=== PATIENT | female | born 2000 | race Caucasian/White ===

== ENCOUNTER 2024-04-03 09:47 | Outpatient (AMB) | payer BC, SELFPAY ==
--- NOTE | 2024-04-03 09:57 | A.OFFPC_ITS ---
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 Intake Note: New patient visit Grades 9 Thru 12 Visiting Teacher Required: No Allergies No Known Allergies Allergy (Verified 04/03/24 09:58) Medication List - Last Reconciled 04/03/24 by Caorlina Dhaliwal PA-C No Known Home Meds Tobacco use date assessed: 04/03/24 Dental Screening Dental Screen Date: 04/03/24 Did you have a dental visit in the last 12 months?: Yes Did you have a dental problem in the last 6 months where you did not have access to dental care?: No Was dental information given to patient?: Patient has dentist HPI 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 She was last seen in August by myself. She states that within the last 6-7 months she has started developing diarrhea with constipation. She states that she has not had a formed stool in about 6 months or so. She says that she used to have a normal bowel movement everyday and now it is every other day and diarrhea. No blood stool. No changes in diet. No n/v. No fever or chills. No pain in the stomach. She does feel like she has been tired and attributes this to starting around the same time as her symptoms despite however much she sleeps but she is working overnight so states it could also be lifestyle. No new meds or supplements. No travel prior to this starting. No weight loss. No fam hx of colon ca or ibd. Psych: Her ADD was controlled with Adderall 40 mg extended release daily. She has followed with Psychiatry and states that they have run into issues of finding Adderall extended release. She states that she is working overnight for the next 2 weeks and for the last week has been off of medication and would like to go on something. She has been unable to reach her psychiatrist. Formula Weigher: Up-to-date with routine visits. Last year I did start her on suppression dose Valtrex for recurrent HSV 2 infections. She states it was helpful and a few months ago she has only started taking this as needed for flare-ups and she has only had 2 flare-ups. [facility] Medical History (Updated 04/03/24 @ 12:48 by Carolina Dhaliwal PA-C) Shoulder subluxation HSV-2 infection ADD (attention deficit disorder) Acne Family History (Updated 04/02/24 @ 14:55 by Malena Lyon CMA) Mother HTN (hypertension) Obese Father Acute myocardial infarction Diabetes Hypercholesteremia Hyperlipidemia Maternal Grandmother ADD (attention deficit disorder) Paternal Grandfather Diabetes Hyperlipidemia Stroke (cerebrum) Sister Scoliosis Maternal Grandmother Cancer of breast Social History Housing: Apartment Patient Tobacco Use Status: Never used Tobacco e-Cigarette/Vaping Use: Former Use Second Hand Smoke Exposure: No service: No Current occupational status: employed 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 1. Little interest or pleasure in doing things: several days 2. Feeling down, depressed, or hopeless: not at all 3. Trouble falling or staying asleep, or sleeping too much: nearly every day 4. Feeling tired or having little energy: nearly every day 5. Poor appetite or overeating: not at all 6. Feeling bad about yourself - or that you are a failure or have let yourself or your family down: not at all 7. Trouble concentrating on things, such as reading the newspaper or watching television: nearly every day 8. Moving or speaking so slowly that other people could have noticed. Or the opposite - being so fidgety or restless that you have been moving around a lot more than usual: not at all 9. Thoughts that you would be better off or of hurting yourself in some way: not at all Total score: 10 Depression Screening Interpretation: Positive Depression Screening Follow-up: Existing condition, In treatment, New Medication prescribed and Change in Medi cation Depression Screening Done: Yes 28388 - PHQ-9 Billing: Yes Source: Developed by Drs. Alvarez Garber, Lisseth Ramos, Lexa Malloy and colleagues, with an educational brad from [employer]. Thrive Questionnaire Date Thrive assessed: 04/03/24 I am a: Patient What is your living situation today?: I have a steady place to live Within the past 12 months, did the food you bought not last and you didn't have the money to get more?: Never true Within the past 12 months, did you worry whether your food would run out before you got money to buy more?: Never true Do you have trouble paying for medicines?: No Do you have trouble getting transportation to medical appointments?: No Do you have trouble paying your heating and electricity bill?: No Do you have trouble taking care of your child, family member or friend?: No Do you have trouble with day-to-day activities such as bathing, preparing meals, shopping, managing finances, etc.?: No Are you currently unemployed and looking for a job?: No Are you interested in more education?: No Please select the resources that you would like help with: None Currently or been in a relationship where the following occur: No concerns reported THRIVE Score: 0 AUDIT C Alcohol Use Questionnaire (AUDIT-C) 1. How often do you have a drink containing alcohol?: 2-4 times a month 2. How many drinks containing alcohol do you have on a typical day when you are drinking?: 1 or 2 3. How often do you have six or more drinks on one occasion?: Less than monthly Total Score: 3 Score Reviewed/Action Taken: Yes DESHAWN-7 AMB Questionnaire DESHAWN-7 Date DESHAWN - 7 assessed: 04/03/24 Feeling nervous, anxious, or on edge: 1 = Several days Not being able to stop or control worryin = Several days Worrying too much about different things: 1 = Several days Trouble relaxin = Nearly every day Being so restless that it is hard to sit still: 3 = Nearly every day Becoming easily annoyed or irritable: 0 = Not at all Feeling afraid as if something awful might happen: 0 = Not at all Total DESHAWN-7 score (0-4 normal; 5-9 mild; 10-14 moderate; 15-21 severe): 9 Source: Developed by Drs. Alvarez Garber, Lisseth Ramos, Lexa Malloy and colleagues, with an educational brad from [employer]. DESHAWN-7 Assessment Billing DESHAWN-7 Assessment Tool: DESHAWN-7 Assessment 50607 Physical exam (Primary Care) Vital Signs: Last Vital Signs Temp 98.2 F 04/03/24 10:02 Pulse 75 04/03/24 10:02 Resp 12 04/03/24 10:02 BP 94/58 L 04/03/24 10:02 Pulse Ox 95 04/03/24 10:02 Oxygen Delivery Method Room Air 04/03/24 10:02 BMI result Body Mass Index 19.5 Tobacco/Smoking Status: Tobacco use Status Tobacco use date assessed 04/03/24 04/03/24 10:06 Patient Tobacco Use Status Never used Tobacco 04/03/24 10:06 e-Cigarette/Vaping Use Former Use 04/03/24 10:06 PHQ-9: PHQ-9 Score PHQ-9: Total score 10 04/03/24 10:14 Depression Screening Interpretation: Positive Depression Screening Follow-up: Existing condition, In treatment, New Medication prescribed and Change in Medication Thrive Assessment: Date of Thrive Assessment Date Thrive assessed 04/03/24 04/03/24 10:06 Currently or been in a relationship where the following occur: No concerns reported Const Orientation/consciousness: patient oriented x3 HENMT Ears: hearing grossly normal bilaterally Neck Thyroid: Thyroid normal Lymphatic: no lymphadenopathy noted Resp Auscultation: clear to auscultation bilaterally Cardio Rate: regular rate Rhythm: regular rhythm Heart sounds: S1 normal heart sound present and S2 normal heart sound present GI Inspection: Yes normal to inspection Palpation (GI): Soft to palpation and Other GI palpation findings present (nontender, no cva tenderness) Auscultation: normoactive bowel sounds Rectal Exam - Female: deferred Skin General skin exam: no rashes or lesions noted Neuro General: patient oriented x3, gait normal and no focal motor deficits Coding Level of Care Code Est Pt Level 4 (69469) Complex EM visit Add On G2211 Diagnoses Alternating constipation and diarrhea R19.8 Fatigue, unspecified type R53.83 Fatigue type: unspecified ADD (attention deficit disorder) F98.8 Additional Codes DESHAWN-7 Assessment Billing - DESHAWN-7 Assessment Tool: DESHAWN-7 Assessment 46689 ([id number]) Assessment & Plan Assessment & Plan (1) Alternating constipation and diarrhea: Code(s): R19.8 - Other specified symptoms and signs involving the digestive system and abdomen Category: Medical Plan: Labs and stool studies ordered today. We discussed with the elimination diet. Advised to try a probiotic. Short term follow up. Or sooner if needed (2) Fatigue: Code(s): R53.83 - Other fatigue Category: Medical Qualifiers: Fatigue type: unspecified Qualified Code(s): R53.83 - Other fatigue Plan: As above (3) ADD (attention deficit disorder): Code(s): F98.8 - Other specified behavioral and emotional disorders with onset usually occurring in childhood and adolescence Category: Medical Plan: We will try Adderall 10 mg b.i.d.. Advised that she needs to follow up with Psychiatry after this prescription. Patient understands and agrees with this plan. Orders: Orders Complete Blood Count Auto Diff Today R19.8 - Other specified symptoms and signs involving the digestive system and abdomen TSH reflex Free T4 Today R19.8 - Other specified symptoms and signs involving the digestive system and abdomen Endomysial IgA rflx Titer Today R19.8 - Other specified symptoms and signs involving the digestive system and abdomen Immunoglobulin A Today R19.8 - Other specified symptoms and signs involving the digestive system and abdomen Erythrocyte Sedimentation Rate Today R19.8 - Other specified symptoms and signs involving the digestive system and abdomen Comprehensive Hope. Panel Fast Today R19.8 - Other specified symptoms and signs involving the digestive system and abdomen IRON PROFILE Today R19.8 - Other specified symptoms and signs involving the digestive system and abdomen Ferritin Today R19.8 - Other specified symptoms and signs involving the digestive system and abdomen Vitamin B12 and Folate Today R19.8 - Other specified symptoms and signs involving the digestive system and abdomen Transglutaminase Ab IgG Today R19.8 - Other specified symptoms and signs involving the digestive system and abdomen OBSX3 Today R19.8 - Other specified symptoms and signs involving the digestive system and abdomen Calprotectin, Fecal Today R19.8 - Other specified symptoms and signs involving the digestive system and abdomen C Reactive Protein Today R19.8 - Other specified symptoms and signs involving the digestive system and abdomen Medications: New dextroamphetamine-amphetamine 10 mg (Adderall) administer doses at least 4-6 hours apart; Partial Fill upon patient request. 10 mg PO BID 60 tabs 0RF 30 days valacyclovir (Valtrex) 500 mg PO DAILY 90 tabs 3RF
[2024-04-03 10:02] VITALS: BP 94/58; PULSE 75; RESP 12; TEMP 36.8; O2SAT 95; BMI 19.5
== END 2024-04-03 10:29 | disposition home or self-care (01) ==
PROVIDERS: PCP Physician Assistant; Visit Provider Physician Assistant
DX: R19.8 Other specified symptoms and signs involving the digestive system and abdomen (principal); R53.83 Other fatigue; F98.8 Other specified behavioral and emotional disorders with onset usually occurring in childhood and adolescence

== ENCOUNTER → 2024-04-03 09:47 | Outpatient (BNVA) | payer BC, SELFPAY | PROVIDERS: PCP Physician Assistant; Visit Provider Physician Assistant | DX: R19.8 Other specified symptoms and signs involving the digestive system and abdomen (principal); R53.83 Other fatigue; F98.8 Other specified behavioral and emotional disorders with onset usually occurring in childhood and adolescence | CPT/HCPCS: 96127 ==

== ENCOUNTER 2024-04-03 10:31 | Outpatient (REF) | payer BC, SELFPAY ==
[2024-04-03 14:24] LABS: MANUAL DIFF FLAG NO
[2024-04-03 14:26] LABS: Basophils Absolute Auto 0.1 X10*3/uL (0.0-0.2); Basophils Percent Auto 1.1 % (0-2); Eosinophils Absolute Auto 0.3 X10*3/uL (0.0-0.4); Eosinophils Percent Auto 3.3 % (0-4); Hematocrit 44.3 % (37.0-47.0); Hemoglobin 14.8 g/dl (12.0-16.0); Imm Gran Abs Auto 0.02 X10*3/uL (0.00-0.03); Imm Gran Pct Auto 0.3 % (0.0-0.4); Lymphocytes Absolute Auto 3.1 X10*3/uL (1.2-4.9); Lymphocytes Percent Auto 41.1 % (20-40); Mean Corpuscular HGB Conc 33.4 g/dl (31.0-35.0); Mean Corpuscular Hemoglobin 32.2 pg (27.0-33.0); Mean Corpuscular Volume 96.3 fL (80.0-98.0); Mean Platelet Volume 10.7 fL (9.4-12.3); Monocytes Absolute Auto 0.6 X10*3/uL (0.1-1.2); Monocytes Percent Auto 8.3 % (2-11); Neutrophils Absolute Auto 3.4 x10*3/uL (2.0-8.3); Neutrophils Percent Auto 45.9 % (45-73); Platelet Count 303 X10*3/uL (160-400); Red Cell Distribution Width 12.3 % (11.0-16.0); White Blood Count 7.5 X10*3/uL (4.8-10.8)
[2024-04-03 14:43] LABS: Alanine Aminotransferase 20 U/L (0-31); Alkaline Phosphatase 48 U/L (39-117); Anion Gap 10 (12-20); Aspartate Amino Transferase 18 U/L (5-31); Bilirubin Total 0.5 mg/dL (0.0-1.0); Blood Urea Nitrogen 7 mg/dL (9-16); C Reactive Protein < 0.10 mg/dL (< or = 0.50); Calcium 9.2 mg/dL (8.4-10.2); Carbon Dioxide 29 mmol/L (22-29); Chloride 106 mmol/L (96-108); Estimated Glomerular Filt Rate > 60; Glucose Fasting 60 mg/dL (60-99); Iron 135 mcg/dL (30-160); Percent Iron Saturation 38 % (15-50); Potassium 3.9 mmol/L (3.3-5.1); Sodium 141 mmol/L (135-145); Total Iron Binding Capacity 356 mcg/dL (228-428); Total Protein 6.4 g/dL (6.5-8.0); Unsaturated Iron Binding 221 ug/dL
[2024-04-03 15:01] LABS: Ferritin 37 ng/mL (10-122); TSH reflex Free T4 2.28 uIU/mL (0.32-4.0)
[2024-04-03 15:15] LABS: Erythrocyte Sedimentation Rate 1 MM/HR (0-20); Folate 6.2 ng/mL (> or = 4.0); Vitamin B12 320 pg/mL (200-900)
[2024-04-05 04:18] LABS: Immunoglobulin A 167 mg/dL (47-310)
[2024-04-05 13:58] LABS: Transglutaminase Ab IgG <1.0 U/mL
[2024-04-09 23:14] LABS: Endomysial IgA Antibody Negative (Negative)
[2024-04-10 19:34] LABS: Calprotectin, Fecal 153 mcg/g
== END 2024-04-03 10:32 | disposition home or self-care (01) ==
LOC: HO.WFDLDS 10:31
PROVIDERS: Visit Provider Physician Assistant
DX: R19.8 Other specified symptoms and signs involving the digestive system and abdomen (principal); R53.83 Other fatigue; F98.8 Other specified behavioral and emotional disorders with onset usually occurring in childhood and adolescence
CPT/HCPCS: 36415; 80053; 82607; 82728; 82746; 82784; 83540; 83993; 84443; 85025; 85652; 86140; 86231; 86364; 96127

== ENCOUNTER 2024-05-02 13:46 | Outpatient (AMB) | payer BC, SELFPAY ==
--- NOTE | 2024-05-02 13:53 | A.OFFPC_ITS ---
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 She was last seen in August by myself. GI: Diarrhea and constipation resolved with her limiting dairy. She says that she actually feels significantly better and normal. She has actually gained a few lb. Her calprotectin level was a little elevated. She would like to recheck this after limiting her dairy. She does not feel like she needs GI consultation. Psych: Her ADD is currently well-controlled with the Adderall 10 mg b.i.d.. 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 Last year I did start her on suppression dose Valtrex for recurrent HSV 2 infections. She states it was helpful and a few months ago she has only started taking this as needed for flare-ups and she has only had 2 flare-ups. [facility] Medical History (Updated 04/15/24 @ 14:12 by Carolina Dhaliwal PA-C) Shoulder subluxation HSV-2 infection ADD (attention deficit disorder) Acne Family History (Updated 05/02/24 @ 13:58 by Malena Lyon CMA) Mother HTN (hypertension) Obese Father Acute myocardial infarction Diabetes Hypercholesteremia Hyperlipidemia Maternal Grandmother ADD (attention deficit disorder) Paternal Grandfather Diabetes Hyperlipidemia Stroke (cerebrum) Sister Scoliosis Maternal Grandmother Cancer of breast Other FH: mental illness Substance abuse Social History Housing: Apartment Alcohol intake: current Patient Tobacco Use Status: Never used Tobacco e-Cigarette/Vaping Use: Former Use Second Hand Smoke Exposure: No Substance Use Type: Marijuana service: No Current occupational status: employed 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 [employer] Current occupational exposures/hazards: Yes Cognitive needs: No Hearing needs: No Vision needs: Yes (glasses) Questionnaire Thrive Questionnaire Date Thrive assessed: 04/03/24 I am a: Patient What is your living situation today?: I have a steady place to live Within the past 12 months, did the food you bought not last and you didn't have the money to get more?: Never true Within the past 12 months, did you worry whether your food would run out before you got money to buy more?: Never true Do you have trouble paying for medicines?: No Do you have trouble getting transportation to medical appointments?: No Do you have trouble paying your heating and electricity bill?: No Do you have trouble taking care of your child, family member or friend?: No Do you have trouble with day-to-day activities such as bathing, preparing meals, shopping, managing finances, etc.?: No Are you currently unemployed and looking for a job?: No Are you interested in more education?: No Please select the resources that you would like help with: None Currently or been in a relationship where the following occur: No concerns reported THRIVE Score: 0 AUDIT C Alcohol Use Questionnaire (AUDIT-C) 1. How often do you have a drink containing alcohol?: Monthly or less 2. How many drinks containing alcohol do you have on a typical day when you are drinking?: 1 or 2 3. How often do you have six or more drinks on one occasion?: Never Total Score: 1 DESHAWN-7 AMB Questionnaire DESHAWN-7 Date DESHAWN - 7 assessed: 04/03/24 Source: Developed by Drs. Alvarez Garber, Lisseth Ramos, Lexa Malloy and colleagues, with an educational brad from [employer]. Physical exam (Primary Care) Vital Signs: Last Vital Signs Pulse 84 05/02/24 13:54 BP 108/68 05/02/24 13:54 Pulse Ox 99 05/02/24 13:54 Oxygen Delivery Method Room Air 05/02/24 13:54 BMI result Body Mass Index 20.0 Tobacco/Smoking Status: Tobacco use Status Tobacco use date assessed 04/03/24 04/03/24 10:06 Patient Tobacco Use Status Never used Tobacco 04/03/24 10:06 e-Cigarette/Vaping Use Former Use 04/03/24 10:06 Thrive Assessment: Date of Thrive Assessment Date Thrive assessed 04/03/24 04/03/24 10:06 Currently or been in a relationship where the following occur: No concerns reported Const Orientation/consciousness: patient oriented x3 HENMT Ears: hearing grossly normal bilaterally Neck Thyroid: Thyroid normal Lymphatic: no lymphadenopathy noted Resp Auscultation: clear to auscultation bilaterally Cardio Rate: regular rate Rhythm: regular rhythm Heart sounds: S1 normal heart sound present and S2 normal heart sound present GI Inspection: Yes normal to inspection Palpation (GI): Soft to palpation and Other GI palpation findings present (nontender, no cva tenderness) Auscultation: normoactive bowel sounds Rectal Exam - Female: deferred Skin General skin exam: no rashes or lesions noted Neuro General: patient oriented x3, gait normal and no focal motor deficits Results Reviewed Results Reviewed: Laboratory Tests 04/03/24 04/03/24 10:33 10:50 WBC 7.5 Hgb 14.8 Hct 44.3 Plt Count 303 Sodium 141 Potassium 3.9 Chloride 106 Carbon Dioxide 29 Anion Gap 10 L BUN 7 L Creatinine 0.79 Estimated GFR > 60 Fasting Glucose 60 Calcium 9.2 Iron 135 TIBC 356 Ferritin 37 Total Bilirubin 0.5 AST 18 ALT 20 Alkaline Phosphatase 48 C-Reactive Protein < 0.10 Total Protein 6.4 L Albumin 4.0 Vitamin B12 320 Folate 6.2 TSH 2.28 Stool Calprotectin 153 H IgA 167 Endomysial IgA Ab Negative Tiss Transglutamin IgG <1.0 Coding Level of Care Code Est Pt Level 4 (31208) Complex EM visit Add On G2211 Diagnoses ADD (attention deficit disorder) F98.8 Alternating constipation and diarrhea R19.8 Assessment & Plan Assessment & Plan (1) ADD (attention deficit disorder): Code(s): F98.8 - Other specified behavioral and emotional disorders with onset usually occurring in childhood and adolescence Category: Medical Plan: Continue current regimen (2) Alternating constipation and diarrhea: Code(s): R19.8 - Other specified symptoms and signs involving the digestive system and abdomen Category: Medical Plan: Resolved with limiting dairy. We will recheck calprotectin level. Orders: Orders Calprotectin, Fecal Today F98.8 - Other specified behavioral and emotional disorders with onset usually occurring in childhood and adolescence, R19.8 - Other specified symptoms and signs involving the digestive system and abdomen
[2024-05-02 13:54] VITALS: BP 108/68; PULSE 84; O2SAT 99
== END 2024-05-02 14:11 | disposition home or self-care (01) ==
LOC: HO.HMCFM 13:47
PROVIDERS: PCP Physician Assistant; Visit Provider Physician Assistant
DX: F98.8 Other specified behavioral and emotional disorders with onset usually occurring in childhood and adolescence (principal); R19.8 Other specified symptoms and signs involving the digestive system and abdomen

== ENCOUNTER 2024-08-07 09:03 | Outpatient (AMB) | payer BC, SELFPAY ==
--- NOTE | 2024-08-07 09:04 | MHC.OFFVIS ---
Intake Visit Reasons: Other fecal abnormalities Intake Note: Jenny presents as a video call today CC: She states that her Dr did a stool sample and there was a slight infection. Allergies No Known Allergies Allergy (Verified 08/07/24 09:04) HPI Comments Details: 24 y.o F with PMH of who is here for elevated fecal calpro. Reports for almost a year has been having post prandial abd pain which is crampy assoc with formed BM that is soft but occurs only 2-3 times weeks. No blood. N urgency, in fact has to strain to pass the BM. The pain gets better with passing BM. No N/V. She does mention that she had a cold when she submitted the fecal calpro. No fam hx of CRC, IBD. Also had reflux as a child - needed to be seen in the hospital for this as well when she was a toddler. Currenty no sx of abd pain, heartburn N,V, regurgitation. PFSH Medical History Shoulder subluxation HSV-2 infection ADD (attention deficit disorder) Acne Family History Mother HTN (hypertension) Obese Father Acute myocardial infarction Diabetes Hypercholesteremia Hyperlipidemia Maternal Grandmother ADD (attention deficit disorder) Paternal Grandfather Diabetes Hyperlipidemia Stroke (cerebrum) Sister Scoliosis Maternal Grandmother Cancer of breast Other FH: mental illness Substance abuse Social History Housing: Apartment Alcohol intake: current Patient Tobacco Use Status: Never used Tobacco e-Cigarette/Vaping Use: Former Use Second Hand Smoke Exposure: No Substance Use Type: Marijuana service: No Current occupational status: employed 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 [employer] Current occupational exposures/hazards: Yes Cognitive needs: No Hearing needs: No Vision needs: Yes (glasses) Review of Systems Const All systems reviewed & are unremarkable except as noted in HPI and below Physical Exam Vital Signs: Video visit: No acute distress No icterus noted No facial asymmetry Speaking in full sentences Telehealth Telehealth Telehealth Platform: [facility] Location of provider rendering services: practice address Location of patient: other Patient Identification confirmed using: Name, : Yes Telehealth method: video Patient verbally consented to treatment: Yes Patient verbally consented to billing insurance company: Yes Patient informed of any privacy concerns related to visit: Yes Minutes spent on Phone/Video with Pt.: 15 Assessment & Plan Assessment & Plan (1) Acid reflux: Code(s): K21.9 - Gastro-esophageal reflux disease without esophagitis Category: Medical (2) Elevated fecal calprotectin: Code(s): R19.5 - Other fecal abnormalities Category: Medical (3) Abdominal pain: Code(s): R10.9 - Unspecified abdominal pain Category: Medical (4) Change in bowel habit: Code(s): R19.4 - Change in bowel habit Category: Medical Plan 1. Reviewed with the pt that fecal calpro is borderline elevated and can not distinguish between acute vs chronic inflammation frederick as she describes having a viral infection at the time of submitting this stool test. Recommend colonoscopy for histo eval vs repeat fecal calpro. Pt prefers to repeat the stool test and do the colo only if its persistently up. Outside of fecal calpro, sx consistent with IBS + also suspect suboptimal defecation mechanics and technique as pt describes straining and splinting even when the stool is soft and sensation of incomplete evacuation. Plan: - Recheck fecal calpro - If still elevated, will need colo - Will also need a dedicated SATNAM for anal sphincter tone and pelvic floor descent eval when she follows up in person 2. Reflux Not symptomatic currently but concerned if this is returning frederick given post prandial abd discomfort. Plan: - Barium swallow Follow up 6 weeks Orders: Orders Calprotectin, Fecal Today R19.5 - Other fecal abnormalities FL barium swallow Today K21.9 - Gastro-esophageal reflux disease without esophagitis Coding Level of Care Code Tele New Pt Level 4 (59763) Diagnoses Acid reflux K21.9 Elevated fecal calprotectin R19.5 Abdominal pain R10.9 Change in bowel habit R19.4
== END 2024-08-07 16:43 | disposition home or self-care (01) ==
LOC: HO.HGI 09:03
PROVIDERS: PCP Physician Assistant; Visit Provider Internal Medicine
DX: R19.5 Other fecal abnormalities (principal); K21.9 Gastro-esophageal reflux disease without esophagitis; R10.9 Unspecified abdominal pain; R19.4 Change in bowel habit
CPT/HCPCS: 99203

== ENCOUNTER 2024-09-10 17:15 | Outpatient (REF) | payer BC, SELFPAY ==
[2024-09-17 18:59] LABS: Calprotectin, Fecal <5 mcg/g
== END 2024-09-10 17:16 | disposition home or self-care (01) ==
LOC: HO.LNP 17:15
PROVIDERS: Visit Provider Internal Medicine
DX: R19.5 Other fecal abnormalities (principal)
CPT/HCPCS: 83993